=== PATIENT | female | born 1965 | race Caucasian/White ===

== ENCOUNTER 2021-04-19 16:43 | Inpatient (IN) | payer MEDICAID, SELFPAY ==
--- NOTE | ~2021-04-19 | XR_ITS ---
EXAMINATION: XR foot LT min 3V DATE: 04/19/2021 17:48 INDICATION: Pain, swelling and bleeding at the left fifth toe. TECHNIQUE: Dorsoplantar, two oblique and lateral views of the left foot were obtained. COMPARISON: None. FINDINGS: No fractures identified. Large cortical erosion with osteolysis at the lateral head of the left fifth proximal phalanx. Mild polyarticular osteoarthritis at the first metatarsophalangeal and several int erphalangeal and tarsal metatarsal joints. 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 Prominent hetero topic ossification along the Achilles tendon approximate 4 similar proximal to its calcaneal insertio n suggesting possibility of chronic tendon tear. Achilles and plantar calcaneal enthesophytes. 6 mm t hin wire-like metallic foreign body in the soft tissues at the lateral heel fat pad. IMPRESSION: 1. Prominent juxta articular erosion at the head of the fifth proximal phalanx which could be due to gout or osteomyelitis. 2. Heterotopic ossification suggesting possible chronic Achilles tendon tear. Correlate with clinical history. 3. Small thin wire-like metallic foreign body at the lateral side of the heel fat pad. 4. Mild polyarticular osteoarthritis in the left mid and forefoot. Reviewed, dictated and finalized at location A. SPLICER IMPRESSION: 1. Prominent juxta articular erosion at the head of the fifth proximal phalanx which could be due to gout or osteomyelitis. 2. Heterotopic ossification suggesting possible chronic Achilles tendon tear. C orrelate with clinical history. 3. Small thin wire-like metallic foreign body at the lateral side of the heel f at pad. 4. Mild polyarticular osteoarthritis in the left mid and forefoot.
[2021-04-19 16:50] VITALS: BP 151/73; PULSE 90; RESP 18; TEMP 37.2; O2SAT 100
[2021-04-19 17:45] LABS: Basophils Percent Auto 0.4 % (0.2-1.2); Eosinophils Absolute Auto 0.3 K/mm3 (0-0.3); Eosinophils Percent Auto 3.3 % (0-4.4); Hemoglobin 13.5 g/dL (12.0-15.0); Immature Granulocyte Absolute 0.03 K/mm3 (0.00-0.031); Immature Granulocyte Percent A 0.4 % (0-0.5); Lymphocytes Absolute Auto 0.99 K/mm3 (0.9-3.2); Lymphocytes Percent Auto 12.7 % (18.3-44.2); Mean Corpuscular HGB Conc 33.8 g/dl (32-36); Mean Corpuscular Hemoglobin 32.5 pg (26-34); Mean Corpuscular Volume 96.4 fl (80-100); Mean Platelet Volume 10.5 fl (7.4-10.4); Monocytes Absolute Auto 0.7 K/mm3 (0.1-0.6); Monocytes Percent Auto 8.8 % (2.6-8.5); Neutrophils Absolute Auto 5.8 K/mm3 (1.3-6.7); Neutrophils Percent Auto 74.4 % (45.5-73.1); Platelet Count Result 216 k/mm3 (150-375); Red Blood Count 4.15 M/mm3 (4.2-5.4); Red Cell Distribution Width 11.9 % (11.5-14.5); White Blood Count 7.8 K/mm3 (4.5-10.0)
--- NOTE | 2021-04-19 17:50 | ED.EXTPRO ---
HPI - Extremity Problem General Chief complaint: Extremity Problem,Nontraumatic Stated complaint: infected toe Time Seen by Provider: 04/19/21 17:21 Source: patient Mode of arrival: ambulatory Limitations: no limitations History of Present Illness HPI Narrative: Patient is a 55-year-old female complaining of left foot and fourth digit of the left foot redness, swelling that started approximately 5 days ago. Patient states that she had a scab on the left foot fifth digit for months but it came off, and start of swelling redness and noticed some mild discharge. Patient states that she is diabetic, [id number]. Patient denies any calf pain, shortness of breath, fever or chills. Related Data Home Medications Medication Instructions Recorded Confirmed No Home Medications 04/19/21 04/19/21 Allergies Allergy/AdvReac Type Severity Reaction Status Date / Time No Known Allergies Allergy Verified 04/19/21 17:17 Review of Systems Review of Systems: All systems reviewed & are unremarkable except as noted in HPI and below Constitutional: Constitutional: Denies body ache(s), Denies chills, Denies excessive sweating, Denies fatigue, Denies fever(s), Denies headache(s), Denies lethargy, Denies malaise, Denies weakness and Denies weight loss Eyes: Eyes: Denies blurry vision, Denies change in vision and Denies loss of vision ENT: Denies dizziness, Denies ear discharge, Denies headache(s), Denies lip swelling, Denies epistaxis, Denies nasal congestion, Denies neck pain, Denies throat swelling and Denies tongue swelling Cardiovascular: Cardiovascular: Denies chest pain, Denies chest pain at rest, Denies chest pain with activity, Denies diaphoresis, Denies rapid heart rate, Denies edema, Denies irregular heart rhythm, Denies lightheadedness, Denies palpitations, Denies dyspnea and Denies dyspnea on exertion Respiratory: Respiratory: Denies chest congestion, Denies cough, Denies hemoptysis, Denies dyspnea and Denies dyspnea on exertion Gastrointestinal: Gastrointestinal: Denies abdominal pain, Denies melena, Denies hematochezia, Denies diarrhea, Denies nausea, Denies vomiting and Denies hematemesis Musculoskeletal: Musculoskeletal: Denies abnormal gait, Denies deformity, Denies joint swelling, Denies limited range of motion, Denies neck pain and Denies numbness Neurologic: Denies Abnormal speech present, Denies abnormal gait, Denies confusion, Denies dizziness, Denies headache(s), Denies focal weakness, Denies loss of vision, Denies numbness, Denies Other visual disturbances, Denies Sensory deficit (Neuro) and Denies weakness Psychiatric: Psychiatric: Denies confusion, Denies depression, Denies auditory hallucinations, Denies homicidal ideation and Denies suicidal ideation Endocrine: Endocrine: Denies cold intolerance, Denies excessive sweating, Denies fatigue, Denies heat intolerance and Denies palpitations Hematologic/Lymphatic: Hematologic/Lymphatic: Denies easy bleeding and Denies easy bruising Allergic/Immunologic: Allergic/Immunologic: Denies lip swelling, Denies throat swelling and Denies tongue swelling PMFSH Comments Past medical history: Diabetes Family history: Diabetes Social history: Non-smoker no EtOH or drug use Exam Const: General: cooperative, healthy appearing, comfortable, no acute distress, well developed, alert and awake; No confusion Orientation/consciousness: oriented to person, oriented to place, oriented to time, patient oriented x3 and No confusion Limitations: no limitations HENMT: Head: normal to inspection, normocephalic and atraumatic Ears: hearing grossly normal bilaterally, TM normal on the right and TM normal on the left General nose exam: Normal external nose present, Normal nares present and No nasal discharge present Face and sinus: normal facial exam Mouth: Yes Normal oral and palatal mucosa present, Yes lip normal, Yes tongue normal and Yes oropharynx normal Throat: posterior oropharynx
[2021-04-19 17:56] LABS: Lactic Acid Reflex 1.2 mmol/L (0.7-2.1)
[2021-04-19 17:57] LABS: Alanine Aminotransferase 22 U/L (4-35); Albumin Level 4.1 g/dL (3.5-5.1); Alkaline Phosphatase 144 U/L (38-126); Anion Gap 6 mmol/L (8-16); Aspartate Amino Transferase 31 U/L (14-36); Bilirubin,Total 0.5 mg/dL (0.2-1.3); Blood Urea Nitrogen 28 mg/dL (7-17); Calcium 9.1 mg/dL (8.4-10.2); Carbon Dioxide 27 mmol/L (22-30); Chloride 99 mmol/L (98-107); Estimated CRCL calculation 82 ml/min; Estimated Glomerular Filt Rate > 60; Glucose 354 mg/dL (65-110); Potassium 4.5 mmol/L (3.4-5.0); Sodium 132 mmol/L (137-145)
--- NOTE | 2021-04-19 18:30 | PM.IMHP ---
H&P: HPI History of Present Illness Date/Time: 04/19/21 18:30 Chief Complaint: Left 5th toe wound. Narrative: This is a 55-year-old female with untreated diabetes presented to the emergency department today for evaluation of a left 5th toe wound. She has had a callus on the lateral left 5th toe for many years which ?rubbed off? within the last couple of weeks and a blister then formed. The blister has been bleeding a small amount, bleeding through perhaps 1 Band-Aid a day. Within the past 5 to 7 days, a small area of the wound opened and has been draining increasing amounts of serosanguineous fluid. About the same time she developed redness and swelling around the toe and now on to the forefoot. She has no significant discomfort at the site due to probable neuropathy. X-ray of the foot showed prominent cortical erosion at the head of the 5th proximal phalanx and she is being admitted in this setting. She has no known history of MRSA or Pseudomonas infection. She also denies fever, chills, sweats. Review of Systems Review of Systems: Twelve systems were reviewed. She has never been on medication for diabetes and in fact it sounds as though she was never diagnosed by a medical doctor but her eye doctor has mention that she has signs of diabetes in her eyes. She reports neuropathy like symptoms in her feet and occasional numbness. No blurry vision, polydipsia, or polyuria. She reports some nausea but no vomiting. Patient has mild, chronic left lower leg edema. Except as documented, all other systems were reviewed and are negative. FORMERLY [facility] Past Medical History Medical History (Updated 04/19/21 @ 21:40 by Valencia Holm PA-C) Uncontrolled type 2 diabetes mellitus Surgical History Surgical History (Updated 04/19/21 @ 21:40 by Valencia Holm PA-C) No history of previous surgery Family History Family History Sibling Asthma Congestive heart failure Diabetes mellitus Mother Colon cancer Diabetes mellitus Hypertension Mother Diabetes mellitus Father Diabetes mellitus Social History Social History (Updated 04/19/21 @ 21:40 by Valencia Holm PA-C) Social History: Surrogate decision maker: Nereida Morgan, sister. Code status: Full code. Smoking status: Former smoker Alcohol intake: never Substance use: never Living arrangements: with family Additional living arrangements comments: The patient lives with her sister in [place]. She has no children. Occupation/Education: unemployed Meds Home Medications and Allergies Home Medications Medication Instructions Recorded Confirmed Type No Home Medications 04/19/21 04/19/21 History Allergies Allergy/AdvReac Type Severity Reaction Status Date / Time No Known Allergies Allergy Verified 04/19/21 17:17 Vital Signs Vital Signs - 24 hr 04/19/21 16:50 04/19/21 20:31 Temperature 98.9 F 98.4 F Pulse Rate 90 79 Respiratory Rate 18 14 Blood Pressure 151/73 H 127/72 Pulse Oximetry 100 100 Exam Narrative: General: Well-developed female sitting in a chair at the side of the bed. Weight: 112.5 kg. BMI: 36.6. HEENT: PERRL, EOMI. Sclerae anicteric. Oral mucosa moist. Oropharynx clear. Neck: Supple. Respiratory: Lungs are clear to auscultation bilaterally. Cardiovascular: Regular rate and rhythm with S1-S2. Gastrointestinal: Abdomen is soft, nontender, and nondistended with positive bowel sounds. Skin: Warm and dry. Left 5th toe is edematous and erythematous with a draining wound on the lateral aspect. Drainage is serosanguineous though a small amount of purulence is also noted. The erythema and edema extend onto the forefoot. The area is only slightly tender to palpation due to neuropathy. Extremities: No cyanosis or clubbing. Mild reactive edema of the left lower leg. Radial and pedal pulses intact. Diminished sensation in the feet. Neurological: Alert. Cr
[2021-04-19] MEDS: LACTATED RINGERS 1,000 ML 999 ML IV CONT (18:54)
[2021-04-19 20:31] VITALS: BP 127/72; PULSE 79; RESP 14; TEMP 36.9; O2SAT 100
--- NOTE | 2021-04-19 21:25 | ADMGEN ---
This patient, Silva Sen, was admitted to Medical Room 346-. Patient/family oriented to hospital policies and general routines including ID bracelet, bed and alarms, visiting hours, pain management, procedures, bathroom and other care routines, personal items, smoking policy, room service/diet, and visiting hours. Information on how to activate the Rapid Response Team has been discussed. Patient/Family are encouraged to report perceived risks to care and to ask questions if they do not understand what they are told or what they should do.
[2021-04-19] MEDS: INSULIN ASPART (*BKC) 100 UNITS/ML SUB-Q (21:39)
[2021-04-19 22:14] VITALS: BP 131/106; PULSE 83; RESP 18; TEMP 36.8; O2SAT 100
[2021-04-19 23:54] LABS: Hemoglobin A1C 10.2 % (<5.7)
[2021-04-20] VITALS (8 sets, daily range): BP systolic 117–139; BP diastolic 52–87; PULSE 78–79; RESP 16–18; TEMP 36.4–38.2; O2SAT 97–99
[2021-04-20 00:03] LABS: CRP 8.9 mg/dL (<1.0)
[2021-04-20 06:00] LABS: Hematocrit 36.4 % (37.0-47.0); Hemoglobin 12.2 g/dL (12.0-15.0); Mean Corpuscular HGB Conc 33.5 g/dl (32-36); Mean Corpuscular Hemoglobin 32.4 pg (26-34); Mean Corpuscular Volume 96.6 fl (80-100); Mean Platelet Volume 10.7 fl (7.4-10.4); Platelet Count Result 190 k/mm3 (150-375); Red Blood Count 3.77 M/mm3 (4.2-5.4); Red Cell Distribution Width 11.9 % (11.5-14.5); White Blood Count 6.5 K/mm3 (4.5-10.0)
[2021-04-20 06:38] LABS: LDL Cholesterol Direct 96 mg/dL
[2021-04-20 06:46] LABS: Thyroid Stimulating Hormone Reflex 0.898 uIU/mL (0.465-4.68)
[2021-04-20 06:57] LABS: Anion Gap 6 mmol/L (8-16); Blood Urea Nitrogen 23 mg/dL (7-17); Calcium 8.3 mg/dL (8.4-10.2); Carbon Dioxide 27 mmol/L (22-30); Chloride 102 mmol/L (98-107); Cholesterol 187 mg/dL (0-200); Estimated CRCL calculation 91 ml/min; Estimated Glomerular Filt Rate > 60; Glucose 292 mg/dL (65-110); HDL Direct 38 mg/dL; Potassium 4.1 mmol/L (3.4-5.0); Sodium 135 mmol/L (137-145); Triglycerides 242 mg/dL (<150)
[2021-04-20 08:01] LABS: Glucose Point of Care 272 mg/dl (65-105)
[2021-04-20] MEDS: INSULIN ASPART (*BKC) 100 UNITS/ML SUB-Q ×4 (08:12→17:32)
[2021-04-20] MEDS: ENOXAPARIN 40 MG/0.4 ML SYRINGE SUB-Q (08:54)
--- NOTE | 2021-04-20 09:16 | PM.CNGS ---
Assessment and Plan Assessment and plan (1) Acute osteomyelitis of toe of left foot: Code(s): M86.172 - Other acute osteomyelitis, left ankle and foot Status: Acute Assessment and Plan: Patient with an infected diabetic left foot wound of the 5th toe. Foot x-rays showed bony erosion of the head of the 5th proximal phalanx that correlates with the location of the wound, which suggests acute osteomyelitis. I discussed surgical versus conservative treatment options with the patient, including 5th toe amputation versus a longer course of IV antibiotics with possible failure of treatment. The patient would like to consider the 5th toe amputation in the OR. Dr. Vasquez will see the patient separately and discuss surgery with her as well. She has already had breakfast, therefore this would not be done today. We could potentially add her onto the surgery schedule in the next few days if we decide on surgery. Continue broad-spectrum IV antibiotics. I will order a wound culture to help tailor antibiotics if the patient ends up refusing surgery. Will also initiate local wound care with silver gel dressing changes. Thank you for allowing us to see the patient in consultation and we will continue to follow along with you. (2) Cellulitis of foot, left: Code(s): L03.116 - Cellulitis of left lower limb Status: Acute Assessment and Plan: Cellulitis of left 5th toe extending down the left midfoot. Continue broad-spectrum IV antibiotics. Elevate left lower extremity when at rest. Also asked nursing to mendy around the redness to help monitor improvement. (3) Uncontrolled type 2 diabetes mellitus: Code(s): E11.65 - Type 2 diabetes mellitus with hyperglycemia Status: Acute Assessment and Plan: Hgb A1C 10.2, newly diagnosed diabetic. Discussed the importance of establishing care with a PCP and managing her diabetes moving forward. Also discussed the importance of glycemic control in wound healing and future infections. hematology nurse educator has been asked to see the patient as well. (4) Obesity (BMI 30-39.9): Code(s): E66.9 - Obesity, unspecified Status: Acute Additional Plan I have discussed the patient's case and plan of care with Dr. Vasquez. History of Present Illness Consult details Consult date: 04/20/21 Reason for consult: other (Left 5th toe wound, acute osteomyelitis) Requesting physician: Santos Hernandez MD Narrative: This is the 55-year-old obese female who presented to the emergency department with complaints of a left 5th toe wound, with associated swelling and redness. The patient reports initially noticing a blister about 5 months ago. This eventually turned into a callus, which would intermittently flake off. This area has not ever completely healed. She reports noticing some clear bloody drainage from this area when the callus would come off. Over the past week, she has noticed changes of redness and swelling to the left 5th toe that spread down her foot. She also reports noticing more bloody drainage coming from the wound on the left 5th toe. Over the past 3-4 days, she has also reportedly had chills at night, but no fever. Due to the worsening symptoms, she presented to the ER for evaluation. She was found to have a left 5th toe wound with cellulitis. Labs showed a normal white blood cell count, CRP 8.9, lactic acid 1.2, glucose 354, and hemoglobin A1c 10.2. Left foot x-ray shows erosion of the head of the 5th proximal phalanx, possible chronic Achilles tendon tear, osteoarthritis, and a small wire like foreign body on the lateral side of the heel fat pad. The patient was admitted to the hospitalist service. She has been started on sliding scale insulin and IV Primaxin and vancomycin for antibiotics. She is currently on a diabetic diet. Our service was consulted for the left diabetic foot wound and osteomyelitis. She is now seen on the medical floor. The patient reports decrease
--- NOTE | 2021-04-20 10:54 | PCDIET ---
Dietitian Consult for uncontrolled DM. See Nutritional Teaching Intervention. Thank you for the consult.
[2021-04-20 11:44] LABS: Glucose Point of Care 330 mg/dl (65-105)
--- NOTE | 2021-04-20 13:52 | PC.NURSE ---
On 04/20/21, the student, Whit Lancaster, provided care and completed [facility] documentation on this patient. I have reviewed the student's documentation and agree with the findings.
--- NOTE | 2021-04-20 14:29 | PM.IMPN ---
Progress Note: A&P Assessment and Plan (1) Acute osteomyelitis of toe of left foot: Code(s): M86.172 - Other acute osteomyelitis, left ankle and foot Status: Acute Assessment and Plan: Presented with open wound of lateral left 5th toe. Left foot x-ray showed prominent juxta-articular erosion at the head of the 5th proximal phalanx, consistent with osteomyelitis Continue imipenem and vancomycin Appreciate general surgery consultation. Considering medical management with prolonged antibiotic therapy vs amputation. Awaiting further surgical recommendations at this time Continue local wound care. Wound consult appreciated Wound culture is pending; tailor antibiotics accordingly Patient is afebrile, leukocytosis. CRP 8.9 Supportive care. Elevate the extremity. Analgesics available as needed (2) Cellulitis of foot, left: Code(s): L03.116 - Cellulitis of left lower limb Status: Acute Assessment and Plan: Plan as above (3) Uncontrolled type 2 diabetes mellitus: Code(s): E11.65 - Type 2 diabetes mellitus with hyperglycemia Status: Acute Assessment and Plan: New diagnosis. A1c is 10.2 Blood sugars have been elevated today ranging 270-330. Continue Accu-Cheks, high-dose sliding scale insulin, hypoglycemic protocol NovoLog 7 units scheduled with meals Lantus 18 units qHS Monitor blood sugar trends and increase insulin regimen as needed Appreciate dietitian and in service educator consultation Subjective Date/time seen: 04/20/21 14:29 Interval history: Date of service: 04/20/2021 Silva Sen is a 55-year-old female with a history poorly controlled type 2 diabetes mellitus who is seen in follow-up for acute osteomyelitis of the left toe. She is feeling well today. She has poor sensation in her feet, therefore has no pain. She is able to bear weight without difficulty. She has no trouble walking around. She stated that she became were something was wrong because the area was persistently bleeding, however today she has not had any bleeding. She reports redness on her foot is unchanged. Denies lymphangitic streaking up the leg. Denies fever, or chills. She states that she knew she had diabetes although she had never been formally diagnosed. She states she knew because IM overweight and do not have feeling in my feet. She had not been evaluated for her concerns of diabetes in the past as she does not have a primary care provider. She denies polyuria, polydipsia, polyphagia. She has been eating well today. Denies abdominal pain, nausea, vomiting, diarrhea, shortness of breath, cough, or chest pain. Review of Systems Review of Systems: All systems reviewed & are unremarkable except as noted in HPI and below Exam Narrative: General: Well-nourished, well-appearing 55 year-old female, sitting up in bed, comfortable, NARD Neuro: awake, alert and oriented x4, speech clear, no focal neuro deficits noted HEENMT: normocephalic, atraumatic, EOMI, sclerae anicteric, moist oral mucosa Respiratory: clear to auscultation bilaterally, nonlabored breathing Cardio: regular rate, regular rhythm with S1-S2 Abdomen: nondistended, normoactive bowel sounds, soft, nontender to palpation Extremities: Left foot with 1+ edema, bilateral lower extremities with 2+ DP pulses, able to wiggle toes bilaterally, sensation intact, brisk capillary refill Skin: Dorsum of left foot is erythematous (confined to marked borders) and warm to palpation. Nontender. Open wound on left lateral 5th toe with scant purulence drainage Psych: appropriate mood and affect, judgment and insight intact Objective Data Vital Signs Vital Signs: Vital Signs - 24 hr 04/19/21 16:50 04/19/21 20:31 04/19/21 22:14 Temperature 98.9 F 98.4 F 98.3 F Pulse Rate 90 79 83 Respiratory Rate 18 14 18 Blood Pressure 151/73 H 127/72 131/106 H Pulse Oximetry 100 100 100 04/20/21 04:10 04/20/21 07:39 02
[2021-04-20 16:22] LABS: Glucose Point of Care 226 mg/dl (65-105)
[2021-04-20] MEDS: INSULIN ASPART (*BKC) 100 UNITS/ML 7 UNITS SUB-Q (17:31)
[2021-04-20] MEDS: INSULIN GLARGINE (*BKC) 100 UNITS/ML 18 UNITS SUB-Q (20:09)
[2021-04-20 20:12] LABS: Glucose Point of Care 156 mg/dl (65-105)
[2021-04-20] MEDS: SILVERGEL (ELTA) 45 ML 1 APPLIC TOPICAL (20:24)
[2021-04-20] MEDS: ACETAMINOPHEN 325 MG TABLET 650 MG PO (21:18)
[2021-04-21 06:34] VITALS: BP 145/65; PULSE 69; RESP 18; TEMP 36.7; O2SAT 100
[2021-04-21 07:58] LABS: Glucose Point of Care 147 mg/dl (65-105)
[2021-04-21 08:17] LABS: Hematocrit 43.9 % (37.0-47.0); Hemoglobin 14.1 g/dL (12.0-15.0); Mean Corpuscular HGB Conc 32.1 g/dl (32-36); Mean Corpuscular Hemoglobin 32.1 pg (26-34); Mean Platelet Volume 10.2 fl (7.4-10.4); Platelet Count Result 222 k/mm3 (150-375); Red Blood Count 4.39 M/mm3 (4.2-5.4); Red Cell Distribution Width 11.9 % (11.5-14.5)
[2021-04-21 08:29] LABS: Anion Gap 7 mmol/L (8-16); Blood Urea Nitrogen 17 mg/dL (7-17); CRP 5.6 mg/dL (<1.0); Calcium 9.3 mg/dL (8.4-10.2); Carbon Dioxide 24 mmol/L (22-30); Chloride 107 mmol/L (98-107); Estimated CRCL calculation 90 ml/min; Estimated Glomerular Filt Rate > 60; Glucose 144 mg/dL (65-110); Potassium 4.3 mmol/L (3.4-5.0); Sodium 138 mmol/L (137-145)
[2021-04-21] MEDS: ENOXAPARIN 40 MG/0.4 ML SYRINGE SUB-Q (08:32)
[2021-04-21] MEDS: INSULIN ASPART (*BKC) 100 UNITS/ML 7 UNITS SUB-Q ×3 (08:33→17:07)
[2021-04-21] MEDS: SILVERGEL (ELTA) 45 ML 1 APPLIC TOPICAL ×2 (08:33→21:48)
[2021-04-21 08:54] LABS: Vancomycin Trough 21.1 ug/mL (10.0-20.0)
--- NOTE | 2021-04-21 10:26 | PM.PNGS ---
Progress Note: A&P Assessment and Plan (1) Acute osteomyelitis of toe of left foot: Code(s): M86.172 - Other acute osteomyelitis, left ankle and foot Status: Acute Assessment and Plan: Cellulitis improving. Continue local wound care with silver gel dressing changes Continue IV abx Consider proceeding with left 5th toe amputation in the next 1-2 days depending on how she progresses (2) Cellulitis of foot, left: Code(s): L03.116 - Cellulitis of left lower limb Status: Acute Assessment and Plan: Cellulitis improving. Continue IV antibiotics. (3) Uncontrolled type 2 diabetes mellitus: Code(s): E11.65 - Type 2 diabetes mellitus with hyperglycemia Status: Acute Additional Plan I have discussed the patient's case and plan of care with Dr. Vasquez. Subjective Subjective Date/Time Seen: 04/21/21 10:05 Patient reports: no new complaints, feels better and afebrile Interval history: Patient seen and examined. Denies any new complaints or current complaints now. She feels swelling in her left foot and redness has improved. Review of Systems Review of Systems: All systems reviewed & are unremarkable except as noted in HPI and below Exam Const: General: comfortable, no acute distress and alert Orientation/consciousness: patient oriented x3 Extrem: Other: Ulcer to the lateral aspect of left 5th toe with scant amount of serosanguineous drainage, surrounding erythema and swelling improved Psych: Insight: Good insight present (Psych) Judgement: Good judgement present (Psych) Objective Data Vital Signs Vital Signs: Vital Signs - 24 hr 04/20/21 11:48 04/20/21 20:00 04/20/21 20:16 Temperature 97.5 F L Pulse Rate 78 79 Respiratory Rate 16 18 Blood Pressure 131/52 L Pulse Oximetry 98 99 99 04/20/21 21:18 04/20/21 21:29 04/20/21 22:45 Temperature 100.6 F H 100.7 F H 98.1 F Pulse Rate 79 Respiratory Rate 18 Blood Pressure 117/87 Pulse Oximetry 99 04/21/21 06:34 Temperature 98.0 F Pulse Rate 69 Respiratory Rate 18 Blood Pressure 145/65 H Pulse Oximetry 100 Intake/Output Intake/Output: Intake & Output 04/18/21 04/19/21 04/20/21 04/21/21 23:59 23:59 23:59 23:59 Intake Total 1550 2300 660 Output Total 1000 Balance 1550 1300 660 Meds/Results Medications: Active Medications Generic Name Dose Route Start Last Admin Trade Name Vincentq PRN Reason Stop Dose Admin Acetaminophen 650 mg 04/19/21 21:47 04/20/21 21:18 Acetaminophen 325 Mg Tablet PO 650 mg Q6H PRN Administration Mild Pain (1-3) or Fever Dextrose 12.5 gm 04/19/21 21:29 Dextrose 50% 25 Gm/50 Ml Syringe IV PUSH PRN PRN Hypoglycemia Protocol Enoxaparin Sodium 40 mg 04/20/21 09:00 04/21/21 08:32 Enoxaparin 40 Mg/0.4 Ml Syringe SUB-Q 40 mg DAILY ZUHAIR Administration Glucagon 1 mg 04/19/21 21:29 Glucagon For Inj 1 Mg Vial IM PRN PRN Hypoglycemia Protocol Glucose 15 gm 04/19/21 21:29 Glucose Oral Gel 15 Gm Of Glucse In 37.5 Gm Tube PO PRN PRN Hypoglycemia Protocol Dextrose 1,000 mls @ 100 mls/hr 04/19/21 21:29 Dextrose 5% 1,000 Ml IVPB PRN PRN Hypoglycemia Protocol Imipenem/Cilastatin Sodium 500 100 mls @ 300 mls/hr 04/19/21 23:00 04/21/21 06:42 mg/ Sodium Chloride IVPB Infused Q6HR ZUHAIR Infusion Vancomycin HCl 2,000 mg in 500 mls @ 250 mls/hr 04/21/21 14:00 Vancomycin 2,000 Mg/D5w 500 Ml IVPB Q18H ZUHAIR Insulin Aspart 7 units 04/20/21 17:00 04/21/21 08:33 Insulin Aspart (*Bkc) 100 Units/Ml SUB-Q 7 units TIDWM ZUHAIR Administration Insulin Aspart 4 - 8 units 04/20/21 17:00 04/21/21 08:28 Insulin Aspart (*Bkc) 100 Units/Ml SUB-Q Not Given TIDWM REPLACED BY [facility] Protocol Insulin Glargine 18 units 04/20/21 21:00 04/20/21 20:09 Insulin Glargine (*Bkc) 100 Units/Ml SUB-Q 18 units HS ZUHAIR Administration Silver Nitrate 1 applic
[2021-04-21 11:59] LABS: Glucose Point of Care 219 mg/dl (65-105)
[2021-04-21] MEDS: INSULIN ASPART (*BKC) 100 UNITS/ML SUB-Q (12:11)
[2021-04-21 14:00] VITALS: BP 137/74; PULSE 77; RESP 16; TEMP 36.2; O2SAT 100
--- NOTE | 2021-04-21 14:39 | PM.IMPN ---
Progress Note: A&P Assessment and Plan (1) Acute osteomyelitis of toe of left foot: Code(s): M86.172 - Other acute osteomyelitis, left ankle and foot Status: Acute Assessment and Plan: Presented with open wound of lateral left 5th toe. Left foot x-ray showed prominent juxta-articular erosion at the head of the 5th proximal phalanx, consistent with osteomyelitis Continue imipenem and vancomycin Appreciate general surgery consultation. Planning for amputation when she can be added to the surgery schedule Continue local wound care. Preliminary wound culture with growth of S. aureus; await final cultures and tailor antibiotics accordingly Low grade fever last night up to 100.7, afebrile today. No leukocytosis. CRP trending down Supportive care. Elevate the extremity. Analgesics available as needed (2) Cellulitis of foot, left: Code(s): L03.116 - Cellulitis of left lower limb Status: Acute Assessment and Plan: Plan as above (3) Uncontrolled type 2 diabetes mellitus: Code(s): E11.65 - Type 2 diabetes mellitus with hyperglycemia Status: Acute Assessment and Plan: New diagnosis. A1c is 10.2 Blood sugars improved today ranging 140-220. Continue Accu-Cheks, high-dose sliding scale insulin, hypoglycemic protocol NovoLog 7 units scheduled with meals Lantus 18 units qHS Monitor blood sugar trends and increase insulin regimen as needed Appreciate dietitian and clinical staff educator consultation Subjective Date/time seen: 04/21/21 14:39 Interval history: Date of service: 04/21/2021 Silva Sen is a 55-year-old female with a history poorly controlled type 2 diabetes mellitus who is seen in follow-up for acute osteomyelitis of the left toe. She feels well today. She has no pain due to neuropathy. She reports her redness has improved. Denies bleeding or drainage. She feels in her usual state of health and has no concerns. Her appetite has been good. She denies nausea, vomiting, fever, or chills. She is able to ambulate without difficulty. Denies shortness breath, cough, or chest pain. Review of Systems Review of Systems: All systems reviewed & are unremarkable except as noted in HPI and below Exam Narrative: General: Well-nourished, well-appearing 55 year-old female, sitting up in bed, comfortable, NARD Neuro: awake, alert and oriented x4, speech clear, no focal neuro deficits noted HEENMT: normocephalic, atraumatic, EOMI, sclerae anicteric, moist oral mucosa Respiratory: clear to auscultation bilaterally, nonlabored breathing Cardio: regular rate, regular rhythm with S1-S2 Abdomen: nondistended, normoactive bowel sounds, soft, nontender to palpation Extremities: Left foot with trace edema, bilateral lower extremities with 2+ DP pulses, able to wiggle toes bilaterally, sensation intact, brisk capillary refill Skin: Dorsum of left foot with improved erythema. Covered with dressing that is clean and dry. Nontender. Psych: appropriate mood and affect, judgment and insight intact Objective Data Vital Signs Vital Signs: Vital Signs - 24 hr 04/20/21 20:00 04/20/21 20:16 04/20/21 21:18 Temperature 100.6 F H Pulse Rate 79 Respiratory Rate 18 Blood Pressure Pulse Oximetry 99 99 04/20/21 21:29 04/20/21 22:45 04/21/21 06:34 Temperature 100.7 F H 98.1 F 98.0 F Pulse Rate 79 69 Respiratory Rate 18 18 Blood Pressure 117/87 145/65 H Pulse Oximetry 99 100 Intake/Output Intake/Output: Intake & Output 04/18/21 04/19/21 04/20/21 04/21/21 23:59 23:59 23:59 23:59 Intake Total 1550 2300 1000 Output Total 1000 Balance 1550 1300 1000 Meds/Results Medications: Active Medications Generic Name Dose Route Start Last Admin Trade Name Freq PRN Reason Stop Dose Admin Acetaminophen 650 mg 04/19/21 21:47 04/20/21 21:18 Acetaminophen 325 Mg Tablet PO 650 mg Q6H PRN Administration Mild Pain (1-3) or Fe
[2021-04-21 17:12] LABS: Glucose Point of Care 173 mg/dl (65-105)
[2021-04-21 20:46] VITALS: BP 142/71; PULSE 77; RESP 18; TEMP 36.1; O2SAT 100
[2021-04-21 20:58] LABS: Glucose Point of Care 193 mg/dl (65-105)
[2021-04-21 21:48] VITALS: RESP 18; O2SAT 100
[2021-04-21] MEDS: INSULIN GLARGINE (*BKC) 100 UNITS/ML 18 UNITS SUB-Q (21:48)
[2021-04-22 05:28] VITALS: BP 120/54; PULSE 78; RESP 14; TEMP 36.1; O2SAT 100
[2021-04-22 06:05] LABS: Anion Gap 5 mmol/L (8-16); Blood Urea Nitrogen 16 mg/dL (7-17); Calcium 9.4 mg/dL (8.4-10.2); Carbon Dioxide 26 mmol/L (22-30); Chloride 106 mmol/L (98-107); Estimated CRCL calculation 90 ml/min; Estimated Glomerular Filt Rate > 60; Glucose 127 mg/dL (65-110); Potassium 3.9 mmol/L (3.4-5.0); Sodium 137 mmol/L (137-145)
[2021-04-22 07:50] LABS: Glucose Point of Care 118 mg/dl (65-105)
[2021-04-22] MEDS: ENOXAPARIN 40 MG/0.4 ML SYRINGE SUB-Q (09:16)
[2021-04-22] MEDS: INSULIN ASPART (*BKC) 100 UNITS/ML 7 UNITS SUB-Q ×3 (09:16→17:53)
[2021-04-22] MEDS: SILVERGEL (ELTA) 45 ML 1 APPLIC TOPICAL ×2 (09:17→20:46)
--- NOTE | 2021-04-22 10:19 | PM.PNGS ---
Progress Note: A&P Assessment and Plan (1) Acute osteomyelitis of toe of left foot: Code(s): M86.172 - Other acute osteomyelitis, left ankle and foot Status: Acute Assessment and Plan: Cellulitis continues to improve. Continue local wound care with silver gel dressing changes Continue IV abx NPO since midnight for possible surgery, we plan on adding her onto the surgery schedule either later today or tomorrow for left 5th toe amputation by Dr. Vasquez (2) Cellulitis of foot, left: Code(s): L03.116 - Cellulitis of left lower limb Status: Acute Assessment and Plan: Cellulitis improving. Continue IV antibiotics. (3) Uncontrolled type 2 diabetes mellitus: Code(s): E11.65 - Type 2 diabetes mellitus with hyperglycemia Status: Acute Additional Plan I have discussed the patient's case and plan of care with Dr. Vasquez. Subjective Subjective Date/Time Seen: 04/22/21 09:49 Patient reports: no new complaints and afebrile Interval history: Patient seen and examined today. She has no new complaints. No events overnight. She feels swelling is about the same as yesterday in her left foot, but redness is slightly better again today. Exam Const: General: no acute distress and awake Extrem: Other: Ulcer to the lateral aspect of left 5th toe with scant amount of purulent vega drainage on dressing, surrounding erythema and swelling improved Psych: Judgement: Good judgement present (Psych) Objective Data Vital Signs Vital Signs: Vital Signs - 24 hr 04/21/21 14:00 04/21/21 20:46 04/21/21 21:48 Temperature 97.1 F L 97 F L Pulse Rate 77 77 Respiratory Rate 16 18 18 Blood Pressure 137/74 142/71 H Pulse Oximetry 100 100 100 04/22/21 05:28 Temperature 97 F L Pulse Rate 78 Respiratory Rate 14 Blood Pressure 120/54 L Pulse Oximetry 100 Intake/Output Intake/Output: Intake & Output 04/19/21 04/20/21 04/21/21 04/22/21 23:59 23:59 23:59 23:59 Intake Total 1550 2300 3090 440 Output Total 1000 600 600 Balance 1550 1300 2490 -160 Meds/Results Medications: Active Medications Generic Name Dose Route Start Last Admin Trade Name Freq PRN Reason Stop Dose Admin Acetaminophen 650 mg 04/19/21 21:47 04/20/21 21:18 Acetaminophen 325 Mg Tablet PO 650 mg Q6H PRN Administration Mild Pain (1-3) or Fever Dextrose 12.5 gm 04/19/21 21:29 Dextrose 50% 25 Gm/50 Ml Syringe IV PUSH PRN PRN Hypoglycemia Protocol Enoxaparin Sodium 40 mg 04/20/21 09:00 04/22/21 09:16 Enoxaparin 40 Mg/0.4 Ml Syringe SUB-Q 40 mg DAILY ZUHAIR Administration Glucagon 1 mg 04/19/21 21:29 Glucagon For Inj 1 Mg Vial IM PRN PRN Hypoglycemia Protocol Glucose 15 gm 04/19/21 21:29 Glucose Oral Gel 15 Gm Of Glucse In 37.5 Gm Tube PO PRN PRN Hypoglycemia Protocol Dextrose 1,000 mls @ 100 mls/hr 04/19/21 21:29 Dextrose 5% 1,000 Ml IVPB PRN PRN Hypoglycemia Protocol Imipenem/Cilastatin Sodium 500 100 mls @ 300 mls/hr 04/19/21 23:00 04/22/21 06:10 mg/ Sodium Chloride IVPB Infused Q6HR ZUHAIR Infusion Vancomycin HCl 2,000 mg in 500 mls @ 250 mls/hr 04/21/21 14:00 04/22/21 09:16 Vancomycin 2,000 Mg/D5w 500 Ml IVPB 250 mls/hr Q18H ZUHAIR Administration Insulin Aspart 7 units 04/20/21 17:00 04/22/21 09:16 Insulin Aspart (*Bkc) 100 Units/Ml SUB-Q 7 units TIDWM ZUHAIR Administration Insulin Aspart 4 - 8 units 04/20/21 17:00 04/22/21 09:07 Insulin Aspart (*Bkc) 100 Units/Ml SUB-Q Not Given TIDWM [facility] Protocol Insulin Glargine 18 units 04/20/21 21:00 04/21/21 21:48 Insulin Glargine (*Bkc) 100 Units/Ml SUB-Q 18 units HS ZUHAIR Administration Silver Nitrate 1 applic 04/20/21 21:00 04/22/21 09:17 Silvergel (Elta) 45 Ml TOPICAL 1 applic Q12HR ZUHAIR Administration Radiology Results: ITS Impressions Foot X-Ray 04/19/21 17:52 IMPRESSION: 1. Promin
--- NOTE | 2021-04-22 10:57 | PM.IMPN ---
Progress Note: A&P Assessment and Plan (1) Acute osteomyelitis of toe of left foot: Code(s): M86.172 - Other acute osteomyelitis, left ankle and foot Status: Acute Assessment and Plan: Presented with open wound of lateral left 5th toe. Left foot x-ray showed prominent juxta-articular erosion at the head of the 5th proximal phalanx, consistent with osteomyelitis Continue imipenem and vancomycin Appreciate general surgery consultation. Planning for amputation when she can be added to the surgery schedule, hopefully this afternoon. She is currently NPO Continue local wound care. Preliminary wound culture with growth of S. aureus; await final cultures and tailor antibiotics accordingly Low grade fever 04/20 100.7, afebrile since. No leukocytosis. CRP trending down Supportive care. Elevate the extremity. Analgesics available as needed (2) Cellulitis of foot, left: Code(s): L03.116 - Cellulitis of left lower limb Status: Acute Assessment and Plan: Plan as above (3) Uncontrolled type 2 diabetes mellitus: Code(s): E11.65 - Type 2 diabetes mellitus with hyperglycemia Status: Acute Assessment and Plan: New diagnosis. A1c is 10.2 Blood sugars improved today, fasting glucose 127 Continue Accu-Cheks, high-dose sliding scale insulin, hypoglycemic protocol NovoLog 7 units scheduled with meals Lantus 18 units qHS Monitor blood sugar trends and adjust insulin regimen as needed Appreciate dietitian and art educator consultation Subjective Date/time seen: 04/22/21 10:57 Interval history: Date of service: 04/22/2021 Silva Sen is a 55-year-old female with a history poorly controlled type 2 diabetes mellitus who is seen in follow-up for acute osteomyelitis of the left toe. She is feeling well today. She is having some discomfort of the right arm due to her vancomycin infusion, she endorses a cold sensation in her arm. Otherwise, she has no complaints. Denies foot pain secondary to neuropathy. She feels that the redness has improved. She has been NPO today as she is hoping she will be able to have surgery this afternoon as an add on. Denies shortness breath, cough, chest pain, nausea, vomiting, dizziness, lightheadedness. Last bowel movement was 2 days ago. Denies urinary symptoms. Review of Systems Review of Systems: All systems reviewed & are unremarkable except as noted in HPI and below Exam Narrative: General: Well-nourished, well-appearing 55 year-old female, sitting up in bed, comfortable, NARD Neuro: awake, alert and oriented x4, speech clear, no focal neuro deficits noted HEENMT: normocephalic, atraumatic, EOMI, sclerae anicteric, moist oral mucosa Respiratory: clear to auscultation bilaterally, nonlabored breathing Cardio: regular rate, regular rhythm with S1-S2 Abdomen: nondistended, normoactive bowel sounds, soft, nontender to palpation Extremities: Left foot with trace edema (nearly resolved), bilateral lower extremities with 2+ DP pulses, able to wiggle toes bilaterally, sensation intact, brisk capillary refill Skin: Erythema over dorsum of left foot has resolved. Wound of lateral left 5th toe with scant drainage on dressing Psych: appropriate mood and affect, judgment and insight intact Objective Data Vital Signs Vital Signs: Vital Signs - 24 hr 04/21/21 14:00 04/21/21 20:46 04/21/21 21:48 Temperature 97.1 F L 97 F L Pulse Rate 77 77 Respiratory Rate 16 18 18 Blood Pressure 137/74 142/71 H Pulse Oximetry 100 100 100 04/22/21 05:28 Temperature 97 F L Pulse Rate 78 Respiratory Rate 14 Blood Pressure 120/54 L Pulse Oximetry 100 Intake/Output Intake/Output: Intake & Output 04/19/21 04/20/21 04/21/21 04/22/21 23:59 23:59 23:59 23:59 Intake Total 1550 2300 3090 440 Output Total 1000 600 600 Balance 1550 1300 2490 -160 Meds/Results Medications: Active Medications Generic Name Dose Route Start La
[2021-04-22 11:30] LABS: Glucose Point of Care 182 mg/dl (65-105)
[2021-04-22 14:19] VITALS: BP 120/60; PULSE 70; RESP 20; TEMP 36.1; O2SAT 100
[2021-04-22 17:07] LABS: Glucose Point of Care 141 mg/dl (65-105)
[2021-04-22 19:34] LABS: Glucose Point of Care 176 mg/dl (65-105)
[2021-04-22 20:31] VITALS: PULSE 78; O2SAT 99
[2021-04-22] MEDS: INSULIN GLARGINE (*BKC) 100 UNITS/ML 18 UNITS SUB-Q (20:46)
[2021-04-22 20:56] VITALS: RESP 16; O2SAT 100
[2021-04-22 21:19] VITALS: BP 140/72; PULSE 76; RESP 16; TEMP 36.2; O2SAT 100
[2021-04-23] VITALS (12 sets, daily range): BP systolic 121–154; BP diastolic 57–84; PULSE 68–79; RESP 14–20; TEMP 36.1–36.8; O2SAT 96–100
[2021-04-23 04:01] LABS: Vancomycin Trough 20.2 ug/mL (10.0-20.0)
[2021-04-23 06:15] LABS: Glucose Point of Care 99 mg/dl (65-105)
[2021-04-23 07:52] LABS: Anion Gap 6 mmol/L (8-16); Blood Urea Nitrogen 17 mg/dL (7-17); CRP 3.8 mg/dL (<1.0); Calcium 9.3 mg/dL (8.4-10.2); Carbon Dioxide 29 mmol/L (22-30); Chloride 107 mmol/L (98-107); Estimated CRCL calculation 90 ml/min; Estimated Glomerular Filt Rate > 60; Glucose 109 mg/dL (65-110); Potassium 4.6 mmol/L (3.4-5.0); Sodium 142 mmol/L (137-145)
[2021-04-23] MEDS: LACTATED RINGERS 1,000 ML 30 ML IV CONT (09:35)
[2021-04-23 09:46] LABS: Glucose Point of Care 137 mg/dl (65-105)
--- NOTE | 2021-04-23 09:50 | WPDANESEPPF ---
Anes - Initial Pre Proc Eval Procedure: Operation Date: 04/23/21 10:30 Proposed Procedures p Left Fifth Toe Amputation - Robin Vasquez DO Date/Time: 04/23/21 09:50 Surgeon: Connie Samayoa PA-C Pre Op Diagnosis: Left Foot Cellulitis, Acute Osteomyelitis Patient Data Age: 55 Gender: F Height: 1.75 m Weight: 108.5 kg Last Vital Signs Temp 36.1 C L 04/23/21 06:45 Pulse 77 04/23/21 06:45 Resp 18 04/23/21 06:45 BP 134/67 04/23/21 06:45 Pulse Ox 99 04/23/21 06:45 Allergies Allergy/AdvReac Type Severity Reaction Status Date / Time No Known Allergies Allergy Verified 04/19/21 17:17 Home Medications Medication Instructions Recorded Confirmed Type No Home Medications 04/19/21 04/19/21 History Laboratory Tests 04/22/21 04/22/21 04/22/21 11:26 16:29 19:28 Sodium Potassium Chloride Carbon Dioxide Anion Gap BUN Creatinine Estim Creat Clear Calc Estimated GFR Glucose POC Capillary Glucose 182 mg/dl H mg/dl 141 mg/dl H mg/dl 176 mg/dl H mg/dl (65-105) (65-105) (65-105) Calcium C-Reactive Protein Vancomycin Trough 04/23/21 04/23/21 04/23/21 00:51 06:12 07:07 Sodium 142 mmol/L mmol/L (137-145) Potassium 4.6 mmol/L mmol/L (3.4-5.0) Chloride 107 mmol/L mmol/L (98-107) Carbon Dioxide 29 mmol/L mmol/L (22-30) Anion Gap 6 mmol/L L mmol/L (8-16) BUN 17 mg/dL mg/dL (7-17) Creatinine 0.80 mg/dL mg/dL (0.7-1.0) Estim Creat Clear Calc 90 ml/min ml/min Estimated GFR > 60 (59 - ) Glucose 109 mg/dL mg/dL (65-110) POC Capillary Glucose 99 mg/dl mg/dl (65-105) Calcium 9.3 mg/dL mg/dL (8.4-10.2) C-Reactive Protein 3.8 mg/dL H mg/dL (<1.0) Vancomycin Trough 20.2 ug/mL H ug/mL (10.0-20.0) 04/23/21 09:44 Sodium Potassium Chloride Carbon Dioxide Anion Gap BUN Creatinine Estim Creat Clear Calc Estimated GFR Glucose POC Capillary Glucose 137 mg/dl H mg/dl (65-105) Calcium C-Reactive Protein Vancomycin Trough Patient hx anesthesia problems: none Family hx anesthesia problems: none Results Review: All pre-operative results and documents have been reviewed as part of the pre-operative evaluation. [facility] Past Medical History Medical History Uncontrolled type 2 diabetes mellitus Surgical History Surgical History No history of previous surgery Family History Family History Sibling Asthma Congestive heart failure Diabetes mellitus Mother Colon cancer Diabetes mellitus Hypertension Mother Diabetes mellitus Father Diabetes mellitus Social History Social History Social History: Surrogate decision maker: Nereida Morgan, sister. Code status: Full code. Smoking status: Former smoker Alcohol intake: never Substance use: never Living arrangements: with family Additional living arrangements comments: The patient lives with her sister in [place]. She has no children. Occupation/Education: unemployed Additional occupation/education comments: Works [employer] with her sister Quirino Laguerre Final PreProcedure Day of Procedure 04/23/21 09:50 Patient weight: obese Heart: regular rate and rhythm Lungs: clear to auscultation Airway: Mallampati scale Neurological: alert and oriented Last oral intake: >/= 8 hours ASA classification: III Emergent: yes Anesthetic plan: proceed Anesthesia type and monitoring: gen
--- NOTE | 2021-04-23 10:12 | WPDHPUPDATE1 ---
History and Physical Update Update Date/Time: 04/23/21 10:12 History and Physical has been reviewed, including an updated exam of the patient. There are NO changes in the patient's condition. Risks, benefits, and alternatives have been discussed and questions answered. Patient agrees to proceed with procedure.
[2021-04-23] MEDS: BUPIVACAINE/EPINEPHRINE 0.5% 30 ML VIAL INFILTRATE (10:58)
--- NOTE | 2021-04-23 11:41 | SUR.PHASEI ---
Simple mask removed at 1138.
[2021-04-23 11:51] LABS: Glucose Point of Care 140 mg/dl (65-105)
[2021-04-23] MEDS: INSULIN ASPART (*BKC) 100 UNITS/ML 7 UNITS SUB-Q ×2 (12:57→17:16)
--- NOTE | 2021-04-23 13:05 | W.PM.PROC2 ---
Procedure Note - Detailed Date of Procedure 04/23/21 Pre-op Diagnosis Left 5th toe osteomyelitis Post-op Diagnosis same Procedure Performed Left 5th Toe Amputation Surgeon Robin Vasquez, DO Anesthesia MAC and local (0.5% bupivicaine with epinephrine) Indications This is a 55-year-old woman who presented with a chronic left 5th toe wound that now appears to be developing signs of cellulitis and abscess. She states that the wound has been there for several months and she thought it was healing for a period of time but then lately it has become more swollen and she recently noticed redness developing on the toe and forefoot. X-rays showed evidence of probable osteomyelitis of the distal phalanx of the left 5th toe. Discussions were made with the patient about treatment options and decision was made to proceed with left 5th toe amputation. She has already been started IV antibiotics and the cellulitis appeared to be improving significantly. Description of Procedure Procedure as well as risks, benefits, and alternatives were discussed with the patient. Written consent was obtained and placed in chart prior to procedure. Patient was brought back to surgical suite. She was placed supine on operating table. Time-out was done to confirm patient and procedure. IV sedation was then administered by the anesthesia department. Her left foot was prepped and draped in sterile fashion using chlorhexidine prep. 0.5% bupivacaine with epinephrine was infiltrated locally around the left 5th toe and proximal metatarsal. An elliptical incision was then made using a 15 blade scalpel around the base of the left 5th toe. Electrocautery was used for hemostasis and for careful dissection down to the metatarsophalangeal joint. The head of the 5th metatarsal was then transected using a bone cutter. The remaining tendon and ligament attachments were freed up using electrocautery and the toe was completely excised and sent to the lab for pathology. The wound bed was then inspected. Hemostasis appeared adequate. There appeared to be adequate tissue to close over the metatarsal. The wound bed was then irrigated with sterile saline. The skin edges were then reapproximated over the bone using 3-0 Nylon vertical mattress interrupted sutures. Xeroform gauze was then applied followed by Kerlix wrap. Patient was then awakened from anesthesia and transferred to recovery. Estimated Blood Loss 5 Urine Output 900 Pathology yes ( Left 5th toe) Complications No immediate complications Condition stable Disposition floor
--- NOTE | 2021-04-23 16:25 | PM.IMPN ---
Progress Note: A&P Assessment and Plan (1) Acute osteomyelitis of toe of left foot: Code(s): M86.172 - Other acute osteomyelitis, left ankle and foot Status: Acute Assessment and Plan: Presented with open wound of lateral left 5th toe. Left foot x-ray showed prominent juxta-articular erosion at the head of the 5th proximal phalanx, consistent with osteomyelitis S/p left 5th toe amputation performed today by Dr. Vasquez. Patient tolerated the procedure well Appreciate general surgery consultation Continue local wound care. Preliminary wound culture with growth of CHIQUI. Continue vancomycin. Will discontinue imipenem Low grade fever 04/20 100.7, afebrile since. No leukocytosis. CRP trending down Supportive care. Elevate the extremity. Analgesics available as needed (2) Cellulitis of foot, left: Code(s): L03.116 - Cellulitis of left lower limb Status: Acute Assessment and Plan: Plan as above (3) Uncontrolled type 2 diabetes mellitus: Code(s): E11.65 - Type 2 diabetes mellitus with hyperglycemia Status: Acute Assessment and Plan: New diagnosis. A1c is 10.2 Blood sugars improved. Fasting glucose 109 today. Continue Accu-Cheks, high-dose sliding scale insulin, hypoglycemic protocol NovoLog 7 units scheduled with meals Lantus 18 units qHS Monitor blood sugar trends and adjust insulin regimen as needed Appreciate dietitian and early childhood special educator consultation Subjective Date/time seen: 04/23/21 16:25 Interval history: Date of service: 04/23/2021 Silva Sen is a 55-year-old female with a history of poorly controlled type 2 diabetes mellitus who is seen in follow-up for acute osteomyelitis of the left toe. She is now s/p left 5th toe amputation. She tolerated the procedure well. She has no pain due to neuropathy. She has been up and walking around wearing her boot without difficulty. She is tolerating clear liquids. Denies nausea, vomiting, fever, chills. She has no additional concerns. She is eager for discharge home. She states her sister will be there to help her with wound care as needed. Review of Systems Review of Systems: All systems reviewed & are unremarkable except as noted in HPI and below Exam Narrative: General: Well-nourished, well-appearing 55 year-old female, sitting in a chair, comfortable, NARD Neuro: awake, alert and oriented x4, speech clear, no focal neuro deficits noted HEENMT: normocephalic, atraumatic, EOMI, sclerae anicteric, moist oral mucosa Respiratory: clear to auscultation bilaterally, nonlabored breathing Cardio: regular rate, regular rhythm with S1-S2 Abdomen: nondistended, normoactive bowel sounds, soft, nontender to palpation Extremities: Left foot in walking boot s/p left 5th toe amputation. Able to wiggle toes bilaterally. Psych: appropriate mood and affect, judgment and insight intact Objective Data Vital Signs Vital Signs: Vital Signs - 24 hr 04/22/21 20:31 04/22/21 20:56 04/22/21 21:19 Temperature 97.2 F L Pulse Rate 78 76 Respiratory Rate 16 16 Blood Pressure 140/72 Pulse Oximetry 99 100 100 04/23/21 06:45 04/23/21 09:45 04/23/21 11:20 Temperature 97.0 F L 98.3 F 97.4 F L Pulse Rate 77 75 76 Respiratory Rate 18 20 14 Blood Pressure 134/67 154/71 H 121/63 Pulse Oximetry 99 100 99 04/23/21 11:35 04/23/21 11:50 04/23/21 12:05 Temperature Pulse Rate 74 71 68 Respiratory Rate 18 14 14 Blood Pressure 134/67 129/57 L 127/67 Pulse Oximetry 100 97 97 04/23/21 12:40 04/23/21 14:00 04/23/21 14:12 Temperature 97.8 F 98.3 F Pulse Rate 69 77 Respiratory Rate 18 20 Blood Pressure 137/70 135/66 Pulse Oximetry 100 99 100 Intake/Output Intake/Output: Intake & Output 04/20/21 04/21/21 04/22/21 04/23/21 23:59 23:59 23:59 23:59 Intake Total 2300 3090 1960 1020 Output Total 2590 156 9171 900 Balance 1300 2490 -240 120 Meds/Results Medications: Acti
[2021-04-23 16:45] LABS: Glucose Point of Care 125 mg/dl (65-105)
[2021-04-23] MEDS: SILVERGEL (ELTA) 45 ML 1 APPLIC TOPICAL (21:07)
[2021-04-23] MEDS: INSULIN GLARGINE (*BKC) 100 UNITS/ML 18 UNITS SUB-Q (21:07)
[2021-04-23 22:12] LABS: Glucose Point of Care 132 mg/dl (65-105)
[2021-04-24 02:09] VITALS: BP 129/67; PULSE 60; RESP 16; TEMP 36.6; O2SAT 97
[2021-04-24 05:41] VITALS: BP 142/62; PULSE 77; RESP 17; TEMP 37.2; O2SAT 99
[2021-04-24 05:58] LABS: Hematocrit 39.5 % (37.0-47.0); Hemoglobin 13.1 g/dL (12.0-15.0); Mean Corpuscular HGB Conc 33.2 g/dl (32-36); Mean Corpuscular Hemoglobin 32.1 pg (26-34); Mean Corpuscular Volume 96.8 fl (80-100); Mean Platelet Volume 10.2 fl (7.4-10.4); Platelet Count Result 214 k/mm3 (150-375); Red Blood Count 4.08 M/mm3 (4.2-5.4); Red Cell Distribution Width 11.9 % (11.5-14.5); White Blood Count 6.5 K/mm3 (4.5-10.0)
[2021-04-24 06:16] LABS: Anion Gap 6 mmol/L (8-16); Blood Urea Nitrogen 14 mg/dL (7-17); Calcium 8.8 mg/dL (8.4-10.2); Carbon Dioxide 26 mmol/L (22-30); Chloride 108 mmol/L (98-107); Estimated CRCL calculation 102 ml/min; Estimated Glomerular Filt Rate > 60; Glucose 91 mg/dL (65-110); Potassium 3.7 mmol/L (3.4-5.0); Sodium 140 mmol/L (137-145)
[2021-04-24 08:21] LABS: Glucose Point of Care 86 mg/dl (65-105)
[2021-04-24] MEDS: ENOXAPARIN 40 MG/0.4 ML SYRINGE SUB-Q (08:23)
[2021-04-24] MEDS: INSULIN ASPART (*BKC) 100 UNITS/ML 7 UNITS SUB-Q ×2 (08:23→12:28)
[2021-04-24] MEDS: SILVERGEL (ELTA) 45 ML 1 APPLIC TOPICAL (08:23)
--- NOTE | 2021-04-24 10:48 | PM.PNGS ---
Progress Note: A&P Assessment and Plan (1) Acute osteomyelitis of toe of left foot: Code(s): M86.172 - Other acute osteomyelitis, left ankle and foot Status: Acute Assessment and Plan: Surgically stable. OK to discharge today. Antibiotic choice per Hospitalist. Local wound care. Follow up in office in 2 weeks. (2) Uncontrolled type 2 diabetes mellitus: Code(s): E11.65 - Type 2 diabetes mellitus with hyperglycemia Status: Acute Subjective Subjective Date/Time Seen: 04/24/21 10:48 Interval history: Pain controlled. Ambulating with boot without difficulty. Exam Extrem: Other: Incision dry, intact with sutures Objective Data Vital Signs Vital Signs: Vital Signs - 24 hr 04/23/21 11:20 04/23/21 11:35 04/23/21 11:50 Temperature 36.3 C L Pulse Rate 76 74 71 Respiratory Rate 14 18 14 Blood Pressure 121/63 134/67 129/57 L Pulse Oximetry 99 100 97 04/23/21 12:05 04/23/21 12:40 04/23/21 14:00 Temperature 36.6 C Pulse Rate 68 69 Respiratory Rate 14 18 Blood Pressure 127/67 137/70 Pulse Oximetry 97 100 99 04/23/21 14:12 04/23/21 18:15 04/23/21 19:39 Temperature 36.8 C 36.2 C L Pulse Rate 77 79 74 Respiratory Rate 20 20 Blood Pressure 135/66 132/68 Pulse Oximetry 100 100 96 04/23/21 20:59 04/24/21 02:09 04/24/21 05:41 Temperature 36.6 C 36.6 C 37.2 C Pulse Rate 74 60 77 Respiratory Rate 18 16 17 Blood Pressure 153/84 H 129/67 142/62 H Pulse Oximetry 100 97 99 Intake/Output Intake/Output: Intake & Output 04/21/21 04/22/21 04/23/21 04/24/21 23:59 23:59 23:59 23:59 Intake Total 3090 1960 1460 490 Output Total 600 2200 1200 850 Balance 2490 -240 260 -360 Meds/Results Medications: Active Medications Generic Name Dose Route Start Last Admin Trade Name Freq PRN Reason Stop Dose Admin Acetaminophen 650 mg 04/19/21 21:47 04/20/21 21:18 Acetaminophen 325 Mg Tablet PO 650 mg Q6H PRN Administration Mild Pain (1-3) or Fever Hydrocodone Bitart/Acetaminophen 1 tab 04/23/21 12:11 Hydrocodone/Acetaminophen (*Crx) 5-325 Mg Tablet PO Q4H PRN Pain Rated 4-6 Hydrocodone Bitart/Acetaminophen 1 tab 04/23/21 12:11 Hydrocodone/Acetaminophen (*Crx) 7.5-325 Mg Tablet PO Q4H PRN Pain Rated 7-10 Bacitracin 1 applic 04/25/21 09:00 Bacitracin Ointment 15 Gm Tube TOPICAL DAILY ZUHAIR Dextrose 12.5 gm 04/19/21 21:29 Dextrose 50% 25 Gm/50 Ml Syringe IV PUSH PRN PRN Hypoglycemia Protocol Enoxaparin Sodium 40 mg 04/20/21 09:00 04/24/21 08:23 Enoxaparin 40 Mg/0.4 Ml Syringe SUB-Q 40 mg DAILY ZUHAIR Administration Glucagon 1 mg 04/19/21 21:29 Glucagon For Inj 1 Mg Vial IM PRN PRN Hypoglycemia Protocol Glucose 15 gm 04/19/21 21:29 Glucose Oral Gel 15 Gm Of Glucse In 37.5 Gm Tube PO PRN PRN Hypoglycemia Protocol Dextrose 1,000 mls @ 100 mls/hr 04/19/21 21:29 Dextrose 5% 1,000 Ml IVPB PRN PRN Hypoglycemia Protocol Vancomycin HCl 2,000 mg in 500 mls @ 250 mls/hr 04/23/21 08:00 04/24/21 08:22 Vancomycin 2,000 Mg/D5w 500 Ml IVPB 250 mls/hr Q24H ZUHAIR Administration Insulin Aspart 7 units 04/20/21 17:00 04/24/21 08:23 Insulin Aspart (*Bkc) 100 Units/Ml SUB-Q 7 units TIDWM ZUHAIR Administration Insulin Aspart 4 - 8 units 04/20/21 17:00 04/24/21 08:20 Insulin Aspart (*Bkc) 100 Units/Ml SUB-Q Not Given TIDWM [facility] Protocol Insulin Glargine 18 units 04/20/21 21:00 04/23/21 21:07 Insulin Glargine (*Bkc) 100 Units/Ml SUB-Q 18 units HS ZUHAIR Administration Radiology Results: ITS Impressions Foot X-Ray 04/19/21 17:52 IMPRESSION: 1. Prominent juxta articular erosion at the head of the fifth proximal phalanx which could be due to gout or osteomyelitis. 2. Heterotopic ossification suggesting possible chronic Achilles tendon tear. Correlate with clinical history. 3. Small thin wire-like meta
[2021-04-24 12:03] LABS: Glucose Point of Care 165 mg/dl (65-105)
--- NOTE | 2021-04-24 13:03 | PM.DS ---
DS: Admitting Diagnosis Discharge Date 04/24/2021 Admitting Diagnosis Osteomyelitis left 5th toe DS: Discharge Diagnosis Discharge Diagnosis (1) Acute osteomyelitis of toe of left foot: Code(s): M86.172 - Other acute osteomyelitis, left ankle and foot Status: Acute Assessment and Plan: Presented with open wound of lateral left 5th toe. Left foot x-ray showed prominent juxta-articular erosion at the head of the 5th proximal phalanx, consistent with osteomyelitis Seen in consultation by General Surgery S/p left 5th toe amputation performed 04/23/[address] Vasquez. Patient tolerated the procedure well Continue local wound care daily Wound cultures with growth of CHIQUI. Treated with IV Vancomycin during admission Will continue p.o. Bactrim for 7 days discharge Supportive care provided. Elevate the extremity (2) Cellulitis of foot, left: Code(s): L03.116 - Cellulitis of left lower limb Status: Acute Assessment and Plan: Plan as above (3) Uncontrolled type 2 diabetes mellitus: Code(s): E11.65 - Type 2 diabetes mellitus with hyperglycemia Status: Acute Assessment and Plan: New diagnosis. A1c is 10.2 Blood sugars up to 300 on arrival and improved with initiating insulin regimen Managed with Accu-Cheks, high-dose sliding scale insulin, hypoglycemic protocol during admission Begin metformin 500 mg b.i.d. Initiate Lantus 10 units qHS Monitor blood sugars at home with meals at bedtime. Instructed to record for review by PCP She met with the dietitian during her admission to discuss dietary changes Diabetes education provided including dietary and lifestyle modifications She has arranged care with a new PCP and will follow-up on Monday04/28/21 for further monitoring DS: Summary Hospital Course Hospital Course: Date of admission: 04/19/2021 Date of discharge: 04/24/2021 Silva Sen is a 55-year-old female with no significant prior medical history, had not been seen for medical evaluation in many years who presented to the emergency department on 04/19/2021 with complaints of increased redness of her left 5th toe ongoing for about 5 days. She had a scab of present for several months that recently began bleeding. She was admitted to the hospitalist service for further evaluation management was seen in consultation by General surgery. Please see above for further details. She underwent left 5th toe amputation and tolerated this procedure well. She will continue oral antibiotics for 1 week to ensure that surrounding cellulitis has resolved. She was diagnosed with diabetes and started on metformin in long-acting insulin. She will follow-up with her PCP later this week for further monitoring of her blood sugars. Extensive education was provided. Patient had overall improvement and felt comfortable with plans for discharge home. She was informed of all of her new medications and felt comfortable managing this, as well as her wound care on her own at home. She was determined to no longer require inpatient care and was discharged in hemodynamically stable condition on 04/24/2021. Status at Discharge Functional status at discharge: independent ambulation Overall status at discharge: patient is progressing back to baseline Time Spent with Patient Time attestation: Total time spent providing and/or coordinating discharge services: 45 minutes Time spent: Greater than 30 minutes Exam Narrative: General: Well-nourished, well-appearing 55 year-old female, sitting on the side of the bed, comfortable, NARD Neuro: awake, alert and oriented x4, speech clear, no focal neuro deficits noted HEENMT: normocephalic, atraumatic, EOMI, sclerae anicteric, moist oral mucosa Respiratory: clear to auscultation bilaterally, nonlabored breathing Cardio: regular rate, regular rhythm with S1-S2 Abdomen: nondistended, normoactive bowel sounds, soft, nontender to palpation Ext
--- NOTE | 2021-04-28 16:24 | PCCDE ---
pt was discharged on 04/24 before diabetes education consult was completed. Attempted to call pt but the number was disconnected. Called her sisters number and left voice mail to have pt call back.
== END 2021-04-24 13:50 | disposition home or self-care (01) | DRG 314 ==
LOC: ANHED 18:45 → ANH3MED 19:53
PROVIDERS: Physician Assistant; Surgery; Admitting Provider Family Medicine; Emergency Provider Emergency Medicine; Visit Provider Physician Assistant
PROC: 0Y6Y0Z0 Detachment at Left 5th Toe, Complete, Open Approach (ICD-10-PCS; principal; 2021-04-23 10:30)
DX: E11.69 Type 2 diabetes mellitus with other specified complication (principal); M86.172 Other acute osteomyelitis, left ankle and foot; L03.116 Cellulitis of left lower limb; R60.0 Localized edema; E11.42 Type 2 diabetes mellitus with diabetic polyneuropathy; E11.65 Type 2 diabetes mellitus with hyperglycemia; E66.9 Obesity, unspecified; Z68.35 Body mass index [BMI] 35.0-35.9, adult; Z87.891 Personal history of nicotine dependence; Z28.21 Immunization not carried out because of patient refusal
CPT/HCPCS: 36415; 73630; 80048; 80053; 80061; 80202; 82948; 83036; 83605; 83735; 84443; 85025; 85027; 86140; 87070; 87077; 87186; 87205; 88305; 88311; 96365; 99285; A9270; J0743; J1650; J1815; J2250; J2543; J2704; J3010; J3370; J7120; L2116